=== PATIENT | male | born 1950 | race Caucasian/White ===

== ENCOUNTER → 2017-07-19 | Outpatient (CLI) | payer OTHER ==
[~2017-07-19] MED LIST: ASPI81CH PO; AZAT50 PO; CIPR500 PO; FERR325 PO; LISI5 PO; METF500C PO; OMEP20ER PO; PYRI60 PO; Prinivil10 MG PO
== END | disposition home or self-care (01) ==
LOC: PLD 07:30 → LAB SHORT 07:30
DX: C44.320 Squamous cell carcinoma of skin of unspecified parts of face (principal)
CPT/HCPCS: 88305

== ENCOUNTER → 2018-02-21 | Outpatient (CLI) | payer OTHER | END | disposition home or self-care (01) | LOC: PLD 10:41 → LAB SHORT 10:41 | DX: L57.0 Actinic keratosis (principal) | CPT/HCPCS: 88305 ==

== ENCOUNTER → 2018-06-05 | Outpatient (CLI) | payer OTHER | END | disposition home or self-care (01) | LOC: PLD 10:30 → LAB SHORT 10:30 | DX: C44.329 Squamous cell carcinoma of skin of other parts of face (principal); D04.4 Carcinoma in situ of skin of scalp and neck | CPT/HCPCS: 88305 ==

== ENCOUNTER → 2018-09-12 | Outpatient (CLI) | payer OTHER | END | disposition home or self-care (01) | LOC: PLD 11:29 → LAB SHORT 11:29 | DX: C44.329 Squamous cell carcinoma of skin of other parts of face (principal); L57.8 Other skin changes due to chronic exposure to nonionizing radiation | CPT/HCPCS: 88305 ==

== ENCOUNTER → 2018-09-24 | Outpatient (CLI) | payer OTHER | END | disposition home or self-care (01) | LOC: PLD 07:56 → LAB SHORT 07:56 | DX: C44.310 Basal cell carcinoma of skin of unspecified parts of face (principal) | CPT/HCPCS: 88305 ==

== ENCOUNTER → 2019-01-23 | Outpatient (CLI) | payer OTHER | END | disposition home or self-care (01) | LOC: PLD 08:12 → LAB SHORT 08:12 | DX: C44.02 Squamous cell carcinoma of skin of lip (principal); C44.42 Squamous cell carcinoma of skin of scalp and neck; D04.4 Carcinoma in situ of skin of scalp and neck | CPT/HCPCS: 88305 ==

== ENCOUNTER → 2019-02-13 | Outpatient (CLI) | payer OTHER | END | disposition home or self-care (01) | LOC: PLD 11:07 → LAB SHORT 11:07 | DX: C44.622 Squamous cell carcinoma of skin of right upper limb, including shoulder (principal) | CPT/HCPCS: 88305 ==

== ENCOUNTER → 2019-03-11 | Outpatient (CLI) | payer OTHER | END | disposition home or self-care (01) | LOC: PLD 13:59 → LAB SHORT 13:59 | DX: C44.329 Squamous cell carcinoma of skin of other parts of face (principal) | CPT/HCPCS: 88305 ==

== ENCOUNTER → 2019-04-02 | Outpatient (CLI) | payer OTHER | END | disposition home or self-care (01) | LOC: PLD 11:08 → LAB SHORT 11:08 | DX: C44.622 Squamous cell carcinoma of skin of right upper limb, including shoulder (principal) | CPT/HCPCS: 88305 ==

== ENCOUNTER → 2019-04-16 | Outpatient (CLI) | payer OTHER | END | disposition home or self-care (01) | LOC: PLD 10:26 → LAB SHORT 10:26 | DX: C76.42 Malignant neoplasm of left upper limb (principal) | CPT/HCPCS: 88305 ==

== ENCOUNTER → 2019-05-01 | Outpatient (CLI) | payer OTHER | END | disposition home or self-care (01) | LOC: OLS 09:46 → LAB SHORT 09:46 | DX: C44.42 Squamous cell carcinoma of skin of scalp and neck (principal) | CPT/HCPCS: 88305 ==

== ENCOUNTER → 2019-05-14 | Outpatient (CLI) | payer OTHER ==
[2019-05-14 13:32] LABS: Adenovirus F 40/41 Not Detected (NOT DETECT); Astrovirus Not Detected (NOT DETECT); Campylobacter Sp Not Detected (NOT DETECT); Cryptosporidium Not Detected (NOT DETECT); Cyclospora Cayetanensis Not Detected (NOT DETECT); E. Coli O157 Not Detected (NOT DETECT); Entamoeba Histolytica Not Detected (NOT DETECT); Enteroaggregative E. coli-EAEC Not Detected (NOT DETECT); Enteropathogenic E. coli-EPEC Not Detected (NOT DETECT); Enterotoxigenic E. coli-ETEC Not Detected (NOT DETECT); Giardia Lamblia Not Detected (NOT DETECT); Norovirus GI/GII Not Detected (NOT DETECT); Plesiomonas Shigelloides Not Detected (NOT DETECT); Rotavirus A Not Detected (NOT DETECT); Salmonella Sp Not Detected (NOT DETECT); Sapovirus Not Detected (NOT DETECT); Shiga Toxin-prod E. coli-STEC Not Detected (NOT DETECT); Shigella/Enteroin E. coli-EIEC Not Detected (NOT DETECT); Vibrio Cholerae Not Detected (NOT DETECT); Vibrio Sp Not Detected (NOT DETECT); Yersinia Enterocolitica Not Detected (NOT DETECT)
== END ==
LOC: LAB EV 07:30
PROVIDERS: Emergency Medicine
DX: R19.7 Diarrhea, unspecified (principal)
CPT/HCPCS: 0097U

== ENCOUNTER → 2019-05-29 | Outpatient (CLI) | payer OTHER | END | disposition home or self-care (01) | LOC: PLD 13:58 → LAB SHORT 13:58 | DX: L57.8 Other skin changes due to chronic exposure to nonionizing radiation (principal) | CPT/HCPCS: 88305 ==

== ENCOUNTER → 2019-06-12 | Outpatient (CLI) | payer OTHER | END | disposition home or self-care (01) | LOC: PLD 07:47 → LAB SHORT 07:47 | DX: C44.329 Squamous cell carcinoma of skin of other parts of face (principal) | CPT/HCPCS: 88305 ==

== ENCOUNTER → 2019-06-26 | Outpatient (CLI) | payer OTHER | END | disposition home or self-care (01) | LOC: LAB SHORT 14:52 → PLD 14:52 | DX: C44.329 Squamous cell carcinoma of skin of other parts of face (principal) | CPT/HCPCS: 88305 ==

== ENCOUNTER 2019-08-19 07:45 | Day surgery (SDC) | payer OTHER ==
[~2019-08-19] VITALS: Ht 180.3 cm; Wt 89.6 kg
--- NOTE | 2019-08-19 08:20 | NUR ---
History, Chart, Medications and Allergies reviewed before start of procedure. Patient confirms NPO status and agrees with scheduled surgery. Lungs clear T/O to Auscultation. Patient States Post-Procedure ride home has been arranged. Patient states colon prep results clear. Pre-Op teaching done. Pt verbalizes understanding.
[2019-08-19] MEDS ORDERED: LISI5 PO (08:32)
--- NOTE | 2019-08-19 08:42 | NUR ---
GLASSES LEFT AT BEDSIDE AND LEFT HEARING AID WILL BE LEFT WITH HIS ERICA AT BEDSIDE.
--- NOTE | 2019-08-19 08:50 | NUR ---
08/19/19 0850 Vickie Sanz History, Chart, Medications and Allergies reviewed before start of procedure. Patient confirms NPO status and agrees with scheduled surgery. PATIENT DETERMINED TO BE ASA APPROPRIATE FOR PROPOFOL SEDATION PRIOR TO START OF PROCEDURE BY DR. FRANCES. 3-LEAD EKG REVIEWED WITH PHYSICIAN PRIOR TO START OF PROCEDURE. MONITOR INTACT WITH CONTINUOUS PULSE OXIMETRY AND INTERMITTENT BP.
== END 2019-08-19 10:01 | disposition home or self-care (01) ==
LOC: ORSCMMR 07:45 → ORD 09:00 → ORSCMMR 10:01
PROVIDERS: Internal Medicine Gastroenterology
PROC: 0DB68ZX Excision of Stomach, Via Natural or Artificial Opening Endoscopic, Diagnostic (ICD-10-PCS; principal; 2019-08-19 09:00)
PROC: 0DB58ZX Excision of Esophagus, Via Natural or Artificial Opening Endoscopic, Diagnostic (ICD-10-PCS; principal; 2019-08-19 09:00)
PROC: 0DBE8ZX Excision of Large Intestine, Via Natural or Artificial Opening Endoscopic, Diagnostic (ICD-10-PCS; principal; 2019-08-19 09:00)
PROC: 0DBB8ZX Excision of Ileum, Via Natural or Artificial Opening Endoscopic, Diagnostic (ICD-10-PCS; principal; 2019-08-19 09:00)
PROC: 0DB48ZX Excision of Esophagogastric Junction, Via Natural or Artificial Opening Endoscopic, Diagnostic (ICD-10-PCS; principal; 2019-08-19 09:00)
DX: K22.70 Barrett's esophagus without dysplasia (principal); K29.50 Unspecified chronic gastritis without bleeding; K57.30 Diverticulosis of large intestine without perforation or abscess without bleeding; R19.7 Diarrhea, unspecified; G70.00 Myasthenia gravis without (acute) exacerbation; E11.9 Type 2 diabetes mellitus without complications; Z79.82 Long term (current) use of aspirin; Z79.84 Long term (current) use of oral hypoglycemic drugs; Z79.899 Other long term (current) drug therapy
CPT/HCPCS: 82947; 88305; 88342; J2704; J7120

== ENCOUNTER → 2019-08-25 | Outpatient (CLI) | payer OTHER | END | disposition home or self-care (01) | LOC: LAB SHORT 15:01 → PLD 15:01 | DX: C44.319 Basal cell carcinoma of skin of other parts of face (principal); C44.329 Squamous cell carcinoma of skin of other parts of face | CPT/HCPCS: 88305 ==

== ENCOUNTER 2019-09-17 07:39 | Day surgery (SDC) | payer OTHER ==
[~2019-09-17] VITALS: Ht 180.3 cm; Wt 88.5 kg
== END 2019-09-17 09:41 | disposition home or self-care (01) ==
LOC: ORSCSDS 07:39
PROVIDERS: Ophthalmology
PROC: 08RJ3JZ Replacement of Right Lens with Synthetic Substitute, Percutaneous Approach (ICD-10-PCS; principal; 2019-09-17 09:00)
DX: H25.11 Age-related nuclear cataract, right eye (principal); E11.9 Type 2 diabetes mellitus without complications; K21.9 Gastro-esophageal reflux disease without esophagitis; G70.00 Myasthenia gravis without (acute) exacerbation; Z79.899 Other long term (current) drug therapy; Z79.82 Long term (current) use of aspirin
CPT/HCPCS: 82947; J2001; J2250; J3010; J3301; J7040; V2632

== ENCOUNTER → 2019-10-07 | Outpatient (CLI) | payer OTHER | END | disposition home or self-care (01) | LOC: PLD 14:51 → LAB SHORT 14:51 | DX: C44.629 Squamous cell carcinoma of skin of left upper limb, including shoulder (principal); L57.0 Actinic keratosis | CPT/HCPCS: 88305 ==

== ENCOUNTER → 2019-12-01 | Outpatient (CLI) | payer OTHER | END | disposition home or self-care (01) | LOC: PLD 09:57 → LAB SHORT 09:57 | DX: D04.62 Carcinoma in situ of skin of left upper limb, including shoulder (principal); L57.8 Other skin changes due to chronic exposure to nonionizing radiation; L57.0 Actinic keratosis | CPT/HCPCS: 88305 ==

== ENCOUNTER 2020-01-07 06:17 | Day surgery (SDC) | payer OTHER ==
[~2020-01-07] VITALS: Ht 180.3 cm; Wt 89.3 kg
== END 2020-01-07 08:47 | disposition home or self-care (01) ==
LOC: ORSCSDS 06:17
PROVIDERS: Ophthalmology
PROC: 08RK3JZ Replacement of Left Lens with Synthetic Substitute, Percutaneous Approach (ICD-10-PCS; principal; 2020-01-07 08:00)
DX: H25.12 Age-related nuclear cataract, left eye (principal); E11.9 Type 2 diabetes mellitus without complications; G70.00 Myasthenia gravis without (acute) exacerbation; I10 Essential (primary) hypertension; Z79.82 Long term (current) use of aspirin; Z79.84 Long term (current) use of oral hypoglycemic drugs; Z79.899 Other long term (current) drug therapy
CPT/HCPCS: 82947; J2001; J2250; J3010; J3301; J7040; V2632

== ENCOUNTER → 2020-01-20 | Outpatient (CLI) | payer OTHER | END | disposition home or self-care (01) | LOC: PLD 08:17 → LAB SHORT 08:17 | DX: D04.61 Carcinoma in situ of skin of right upper limb, including shoulder (principal) | CPT/HCPCS: 88305 ==

== ENCOUNTER → 2020-04-08 | Outpatient (CLI) | payer MEDICARE | END | disposition home or self-care (01) | LOC: PLD 10:15 → LAB SHORT 10:15 | DX: C44.329 Squamous cell carcinoma of skin of other parts of face (principal); D00.01 Carcinoma in situ of labial mucosa and vermilion border; L57.0 Actinic keratosis | CPT/HCPCS: 88305 ==

== ENCOUNTER → 2020-04-26 | Outpatient (CLI) | payer MEDICARE | END | disposition home or self-care (01) | LOC: LAB SHORT 10:12 → PLD 10:12 | DX: C44.229 Squamous cell carcinoma of skin of left ear and external auricular canal (principal) | CPT/HCPCS: 88305 ==

== ENCOUNTER → 2020-06-09 | Outpatient (CLI) | payer MEDICARE | END | disposition home or self-care (01) | LOC: PLD 08:34 → LAB SHORT 08:34 | DX: C44.622 Squamous cell carcinoma of skin of right upper limb, including shoulder (principal) | CPT/HCPCS: 88305 ==

== ENCOUNTER 2020-06-16 08:44 | Day surgery (SDC) | payer MEDICARE ==
[~2020-06-16] VITALS: Ht 180.3 cm; Wt 89.9 kg
--- NOTE | 2020-06-16 09:24 | NUR ---
06/16/20 0924 Michelle Arcos TWO IV ATTEMPTS. FIRT IV ATTEMPT ON LEFT HAND INFILTRATED. SECOND IV ATTEMPT SUCCESSFUL. PT TOLERATED IV STARTS
== END 2020-06-16 11:12 | disposition home or self-care (01) ==
LOC: ORSCSDS 08:44
PROVIDERS: Otolaryngology
PROC: 0CB70ZZ Excision of Tongue, Open Approach (ICD-10-PCS; principal; 2020-06-16 10:00)
DX: K13.21 Leukoplakia of oral mucosa, including tongue (principal); C02.3 Malignant neoplasm of anterior two-thirds of tongue, part unspecified; E11.9 Type 2 diabetes mellitus without complications; K21.9 Gastro-esophageal reflux disease without esophagitis; G70.00 Myasthenia gravis without (acute) exacerbation; I10 Essential (primary) hypertension; Z79.82 Long term (current) use of aspirin; Z79.84 Long term (current) use of oral hypoglycemic drugs; Z79.899 Other long term (current) drug therapy
CPT/HCPCS: 82947; 88305; J0330; J1100; J2405; J2704; J3010; J7120

== ENCOUNTER 2020-07-23 14:05 | Day surgery (SDC) | payer MEDICARE ==
[~2020-07-23] VITALS: Ht 180.3 cm; Wt 88.4 kg
[2020-07-23] MEDS ORDERED: ZANAFLEX4 M3 PO (15:01)
[2020-07-23] MEDS ORDERED: IBUP800 PO (15:01)
== END 2020-07-23 15:27 | disposition home or self-care (01) ==
LOC: ORSCSDS 14:05
PROVIDERS: Anesthesiology
PROC: 3E0R33Z Introduction of Anti-inflammatory into Spinal Canal, Percutaneous Approach (ICD-10-PCS; principal; 2020-07-23 15:00)
DX: M51.16 Intervertebral disc disorders with radiculopathy, lumbar region (principal); I10 Essential (primary) hypertension; D50.9 Iron deficiency anemia, unspecified; E11.9 Type 2 diabetes mellitus without complications; K21.9 Gastro-esophageal reflux disease without esophagitis; Z79.82 Long term (current) use of aspirin; Z79.84 Long term (current) use of oral hypoglycemic drugs; Z79.899 Other long term (current) drug therapy
CPT/HCPCS: J1040

== ENCOUNTER → 2020-08-09 | Outpatient (CLI) | payer MEDICARE ==
[~2020-08-09] MED LIST changes: +IBUP800 PO; +TIZA4 PO; +ZANAFLEX4 M3 PO; +[UNRECOGNIZED DRUG - CODE] PO
== END | disposition home or self-care (01) ==
LOC: LAB SHORT 11:59
DX: C44.329 Squamous cell carcinoma of skin of other parts of face (principal)
CPT/HCPCS: 88305

== ENCOUNTER → 2020-09-20 | Outpatient (CLI) | payer MEDICARE ==
[~2020-09-20] MED LIST changes: +Aspir 8181 MG PO; +[UNRECOGNIZED DRUG - CODE] PO
== END ==
LOC: LAB SHORT 14:48 → LAB 14:48
DX: C44.629 Squamous cell carcinoma of skin of left upper limb, including shoulder (principal); C44.329 Squamous cell carcinoma of skin of other parts of face
CPT/HCPCS: 88305

== ENCOUNTER 2020-09-22 10:34 | Day surgery (SDC) | payer MEDICARE ==
[~2020-09-22] VITALS: Ht 180.3 cm; Wt 87.5 kg
--- NOTE | 2020-09-22 13:21 | NUR ---
09/22/20 1321 CHRISTINA GRACE PROCEDURE COMPLETED BY DR. MILLER AFTER INFORMED CONSENT WAS OBTAINED, PATIENT TOLERATED PROCEDURE WELL, VS REMAIN STABLE, DISCHARGE INSTRUCTIONS PROVIDED, NO QUESTIONS NOTED BY THE PATIENT
== END 2020-09-22 11:17 | disposition home or self-care (01) ==
LOC: ORSCSDS 10:34
PROVIDERS: Anesthesiology
PROC: 3E0R33Z Introduction of Anti-inflammatory into Spinal Canal, Percutaneous Approach (ICD-10-PCS; principal; 2020-09-22 11:30)
DX: M51.16 Intervertebral disc disorders with radiculopathy, lumbar region (principal); M54.5 Low back pain; K21.9 Gastro-esophageal reflux disease without esophagitis; Z79.82 Long term (current) use of aspirin; Z79.84 Long term (current) use of oral hypoglycemic drugs; Z79.899 Other long term (current) drug therapy
CPT/HCPCS: J1040

== ENCOUNTER → 2020-10-07 | Outpatient (CLI) | payer MEDICARE | END | disposition home or self-care (01) | LOC: LAB SHORT 12:29 → PLD 12:29 | DX: C44.329 Squamous cell carcinoma of skin of other parts of face (principal) | CPT/HCPCS: 88305 ==

== ENCOUNTER → 2020-11-15 | Outpatient (CLI) | payer MEDICARE | END | disposition home or self-care (01) | LOC: LAB SHORT 13:00 → PLD 13:00 | DX: C44.622 Squamous cell carcinoma of skin of right upper limb, including shoulder (principal); C44.329 Squamous cell carcinoma of skin of other parts of face | CPT/HCPCS: 88305 ==

== ENCOUNTER 2020-11-25 10:38 | Day surgery (SDC) | payer MEDICARE ==
[~2020-11-25] VITALS: Ht 180.3 cm; Wt 88.5 kg
== END 2020-11-25 11:53 | disposition home or self-care (01) ==
LOC: ORSCSDS 10:38
PROVIDERS: Anesthesiology
PROC: 3E0R3BZ Introduction of Anesthetic Agent into Spinal Canal, Percutaneous Approach (ICD-10-PCS; principal; 2020-11-25 11:30)
PROC: 3E0R33Z Introduction of Anti-inflammatory into Spinal Canal, Percutaneous Approach (ICD-10-PCS; principal; 2020-11-25 11:30)
DX: M51.16 Intervertebral disc disorders with radiculopathy, lumbar region (principal); K21.9 Gastro-esophageal reflux disease without esophagitis; I10 Essential (primary) hypertension; E11.9 Type 2 diabetes mellitus without complications; G70.00 Myasthenia gravis without (acute) exacerbation; D46.9 Myelodysplastic syndrome, unspecified; Z79.84 Long term (current) use of oral hypoglycemic drugs; Z79.899 Other long term (current) drug therapy; Z79.82 Long term (current) use of aspirin
CPT/HCPCS: J1040

== ENCOUNTER → 2020-12-15 | Outpatient (CLI) | payer MEDICARE | END | disposition home or self-care (01) | LOC: LAB 07:46 → LAB SHORT 07:46 | DX: C44.329 Squamous cell carcinoma of skin of other parts of face (principal) | CPT/HCPCS: 88305 ==

== ENCOUNTER → 2021-02-02 | Outpatient (CLI) | payer MEDICARE | LOC: LAB 14:28 → LAB SHORT 14:28 | DX: D48.5 Neoplasm of uncertain behavior of skin (principal); C44.329 Squamous cell carcinoma of skin of other parts of face; C44.02 Squamous cell carcinoma of skin of lip | CPT/HCPCS: 88305 ==

== ENCOUNTER → 2021-02-21 | Outpatient (CLI) | payer MEDICARE | END | disposition home or self-care (01) | LOC: LAB SHORT 07:08 → LAB 07:08 | DX: C76.0 Malignant neoplasm of head, face and neck (principal) | CPT/HCPCS: 88173 ==

== ENCOUNTER 2021-03-16 06:10 | Inpatient (IN) | payer MEDICARE ==
[~2021-03-16] VITALS: Ht 180.3 cm; Wt 87.2 kg
[~2021-03-16 06:10] MED LIST changes: +NIACINAMIDE PO; +OXAYDO5 M3 PO
--- NOTE | 2021-03-16 13:05 | NUR ---
RECIEVED PATIENT FROM PACU RECIEVED REPORT. PATIENT TO BE RECOVERED IN STEP IN PATIENT EXTENDED STAY TILL READY FOR DISCHARGE.
--- NOTE | 2021-03-16 13:11 | NUR ---
RECIEVED PATIENT FROM PACU AND REPORT VSS GIVEN WATER FOR SMALL SIPS
--- NOTE | 2021-03-16 13:29 | NUR ---
UP TO USE URINAL AND GIVEN PAIN RX.
--- NOTE | 2021-03-16 14:33 | NUR ---
ALL DISCHARGE TEACHING DONE WITH AND PATIENT PATIENT DISCHARGED AT THIS TIME ALL DISCHARGE CRITERIA MET PATIENT DRANK URINATED AND TOOK PAIN RX NO SWELLING AT SURGICAL SITE. PATIENT DISCHARGED WITH ALL BELONGINGS AND DISCHARGE INSTRUCTIONS
[2021-04-14] MEDS ORDERED: IBUP200 PO (15:06)
[2021-04-14] MEDS ORDERED: Niacinamide500 MG PO (15:07)
== END 2021-03-16 14:33 | disposition home or self-care (01) | DRG 822 ==
LOC: SURS 06:10 → PRE IP 07:30 → SURS 14:33
PROVIDERS: ADMIT Otolaryngology
PROC: 07T10ZZ Resection of Right Neck Lymphatic, Open Approach (ICD-10-PCS; principal; 2021-03-16 07:30)
DX: C77.0 Secondary and unspecified malignant neoplasm of lymph nodes of head, face and neck (principal); E11.9 Type 2 diabetes mellitus without complications; K21.9 Gastro-esophageal reflux disease without esophagitis; Z85.810 Personal history of malignant neoplasm of tongue; Z79.899 Other long term (current) drug therapy; Z79.84 Long term (current) use of oral hypoglycemic drugs; Z98.890 Other specified postprocedural states; Z85.828 Personal history of other malignant neoplasm of skin
CPT/HCPCS: 82947; 88305; A9270; J0171; J0330; J0690; J1100; J2250; J2370; J2405; J2704; J3010; J7120

== ENCOUNTER → 2021-04-14 | Outpatient (CLI) | payer MEDICARE ==
[~2021-04-14] MED LIST changes: +IBUP200 PO; +MINOCYCLINE HC100 M2 PO; +Niacinamide500 MG PO
== END ==
LOC: LAB SHORT 11:22 → LAB 11:22
DX: C44.622 Squamous cell carcinoma of skin of right upper limb, including shoulder (principal); L08.0 Pyoderma; D04.61 Carcinoma in situ of skin of right upper limb, including shoulder
CPT/HCPCS: 87070; 87075; 87077; 87147; 87186; 87205; 88305

== ENCOUNTER 2021-04-15 08:51 | Day surgery (SDC) | payer MEDICARE ==
[~2021-04-15] VITALS: Ht 180.3 cm; Wt 85.6 kg
[~2021-04-15 08:51] MED LIST changes: -MINOCYCLINE HC100 M2 PO
[2021-04-15] MEDS ORDERED: MINOCYCLINE HC100 M2 PO (09:24)
--- NOTE | 2021-04-15 09:36 | NUR ---
Ambulatory in Day Surgery. Pt walks with cane. Surgical site prepped with 2% Chlorhexidine cloth wipe. History, Chart, Medications and Allergies reviewed before start of procedure. Patient confirms NPO status and agrees with scheduled surgery. Pre-Op teaching done. Pt verbalizes understanding. Patient States Post-Procedure ride home has been arranged. Patient reports completing Chlorhexadine shower X2 prior to procedure.
--- NOTE | 2021-04-15 09:49 | NUR ---
Pt glasses and left hearing aide placed in blue mercy bag with pt sticker. Taken to PACU.
--- NOTE | 2021-04-15 11:50 | NUR ---
Discharge instructions reviewed with patient. Patient verbalizes understanding. Copy given to patient to take home. Dressing to procedure site clean, dry, intact with no visible drainage, swelling, erythema or bruising noted. Discharged via wheelchair to private car for ride home.
== END 2021-04-15 11:52 | disposition home or self-care (01) ==
LOC: ORSCMMR 08:51 → ORD 11:00 → ORSCMMR 11:00
PROVIDERS: Surgery
PROC: B544ZZA Ultrasonography of Left Jugular Veins, Guidance (ICD-10-PCS; principal; 2021-04-15 09:30)
PROC: 05HN33Z Insertion of Infusion Device into Left Internal Jugular Vein, Percutaneous Approach (ICD-10-PCS; principal; 2021-04-15 09:30)
DX: C02.2 Malignant neoplasm of ventral surface of tongue (principal); I10 Essential (primary) hypertension; G70.00 Myasthenia gravis without (acute) exacerbation; K21.9 Gastro-esophageal reflux disease without esophagitis; E11.40 Type 2 diabetes mellitus with diabetic neuropathy, unspecified; Z79.84 Long term (current) use of oral hypoglycemic drugs; Z79.899 Other long term (current) drug therapy
CPT/HCPCS: 77001; 82947; C1788; J0690; J1100; J1642; J2405; J2704; J3010; J7120

== ENCOUNTER 2021-05-13 13:25 | Day surgery (SDC) | payer MEDICARE ==
[~2021-05-13 13:25] MED LIST changes: +MINOCYCLINE HC100 M2 PO
== END 2021-05-13 17:30 | disposition home or self-care (01) ==
LOC: ATC 13:25
DX: D46.A Refractory cytopenia with multilineage dysplasia (principal); D70.1 Agranulocytosis secondary to cancer chemotherapy; T45.1X5A Adverse effect of antineoplastic and immunosuppressive drugs, initial encounter; D50.9 Iron deficiency anemia, unspecified; C77.9 Secondary and unspecified malignant neoplasm of lymph node, unspecified; D69.6 Thrombocytopenia, unspecified
CPT/HCPCS: 36430; 86850; 86900; 86901; 86920; J1642; J7050; P9016

== ENCOUNTER → 2021-06-14 | Outpatient (CLI) | payer MEDICARE | END | disposition home or self-care (01) | LOC: LAB SHORT 11:11 → LAB 11:11 | DX: D04.39 Carcinoma in situ of skin of other parts of face (principal); D04.61 Carcinoma in situ of skin of right upper limb, including shoulder | CPT/HCPCS: 88305 ==

== ENCOUNTER 2021-07-14 00:43 | Day surgery (SDC) | payer MEDICARE | END 2021-07-14 11:02 | disposition home or self-care (01) | LOC: ATC 00:43 → LAB SO 09-15 09:50 → EDSTATUS 05-04 07:30 | DX: C02.2 Malignant neoplasm of ventral surface of tongue (principal); C77.0 Secondary and unspecified malignant neoplasm of lymph nodes of head, face and neck; G70.00 Myasthenia gravis without (acute) exacerbation; K21.9 Gastro-esophageal reflux disease without esophagitis; Z92.21 Personal history of antineoplastic chemotherapy; Z92.3 Personal history of irradiation | CPT/HCPCS: 36415; 36430; 86850; 86900; 86901; 86923; J1642; J7050; P9016 ==

== ENCOUNTER 2021-08-10 04:52 | Day surgery (SDC) | payer MEDICARE | END 2021-08-10 17:09 | disposition home or self-care (01) | LOC: ATC 04:52 | DX: D64.81 Anemia due to antineoplastic chemotherapy (principal); C02.2 Malignant neoplasm of ventral surface of tongue; T45.1X5A Adverse effect of antineoplastic and immunosuppressive drugs, initial encounter | CPT/HCPCS: 36430; 86850; 86900; 86901; 86923; J1642; J7050; P9016 ==

== ENCOUNTER → 2021-08-17 | Outpatient (CLI) | payer MEDICARE | LOC: LAB SHORT 12:19 | DX: D48.5 Neoplasm of uncertain behavior of skin (principal); D04.21 Carcinoma in situ of skin of right ear and external auricular canal | CPT/HCPCS: 88305 ==

== ENCOUNTER 2021-08-26 03:43 | Day surgery (SDC) | payer MEDICARE ==
--- NOTE | 2021-08-26 13:05 | NUR ---
Breath sounds to R upper lobe are diminished. All other lung nava clear.
== END 2021-08-26 16:29 | disposition home or self-care (01) ==
LOC: ATC 03:43
DX: D64.81 Anemia due to antineoplastic chemotherapy (principal); C02.2 Malignant neoplasm of ventral surface of tongue
CPT/HCPCS: 86850; 86900; 86901; 86923; J1642; J7050; P9016